=== PATIENT | male | born 2000 | race Hispanic/Latino ===

== ENCOUNTER 2023-01-11 09:58 | Emergency (ER) | payer OTHER ==
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
--- NOTE | 2023-01-11 12:31 | RAD REPORT ---
EXAM DESCRIPTION: RAD - Forearm Left - 01/11/2023 12:18 pm CLINICAL HISTORY: PAIN COMPARISON: No comparisons FINDINGS: No fracture or dislocation seen. Mild soft tissue swelling is seen along the dorsum of the distal forearm.
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
[2023-01-11 13:08] VITALS: TEMP 97.4
[2023-01-11 13:11] VITALS: BP 114/77; O2SAT 97
== END 2023-01-11 12:57 | disposition home or self-care (01) ==
LOC: ER 09:58
PROC: 0HQ1XZZ Repair Face Skin, External Approach (ICD-10-PCS; principal; 2023-01-11)
DX: S01.01XA Laceration without foreign body of scalp, initial encounter (principal); S02.2XXA Fracture of nasal bones, initial encounter for closed fracture; S50.12XA Contusion of left forearm, initial encounter
CPT/HCPCS: 70450; 70486; 76377; 99285

== ENCOUNTER 2023-01-31 13:36 | Emergency (ER) | payer OTHER ==
--- NOTE | 2023-01-31 13:53 | EDPHYS ---
Physician Documentation [facility] Name: Junaid Moody Jr Age: 23 yrs Sex: Male : 2000 Arrival Date: 01/31/2023 Time: 13:36 Bed DX5 Private MD: None, None ED Physician Sagar Coleman HPI: 01/31 15:26 This 23 yrs old Male presents to ER via Ambulatory with complaints of Staple snw Removal. 15:26 The patient has malinda on the scalp. Sutures/malinda progress: The patient has no snw c/o's. The wound is well-healing with no redness, swelling, discharge, or dehiscence reported. Historical: - Allergies: 13:52 No Known Allergies; db - PMHx: 13:52 None; db - PSHx: 13:52 hernia surgery; db - Immunization history:: Adult Immunizations unknown. - Social history:: Smoking status: Patient denies any tobacco usage or history of. ROS: 15:24 Constitutional: Negative for fever, chills, and weight loss, Eyes: Negative for injury, snw pain, redness, and discharge, ENT: Negative for injury, pain, and discharge, Neck: Negative for injury, pain, and swelling, Cardiovascular: Negative for chest pain, palpitations, and edema, Respiratory: Negative for shortness of breath, cough, wheezing, and pleuritic chest pain, Abdomen/GI: Negative for abdominal pain, nausea, vomiting, diarrhea, and constipation, Back: Negative for injury and pain, : Negative for injury, bleeding, discharge, and swelling, MS/Extremity: Negative for injury and deformity, Neuro: Negative for headache, weakness, numbness, tingling, and seizure, Psych: Negative for depression, anxiety, suicide ideation, homicidal ideation, and hallucinations, 15:24 Skin: Positive for laceration(s), here for staple removal, Exam: 15:23 Constitutional: This is a well developed, well nourished patient who is awake, alert, snw and in no acute distress. Eyes: Pupils equal round and reactive to light, extra-ocular motions intact. Lids and lashes normal. Conjunctiva and sclera are non-icteric and not injected. Cornea within normal limits. Periorbital areas with no swelling, redness, or edema. ENT: Nares patent. No nasal discharge, no septal abnormalities noted. Tympanic membranes are normal and external auditory canals are clear. Oropharynx with no redness, swelling, or masses, exudates, or evidence of obstruction, uvula midline. Mucous membranes moist. Neck: Trachea midline, no thyromegaly or masses palpated, and no cervical lymphadenopathy. Supple, full range of motion without nuchal rigidity, or vertebral point tenderness. No Meningismus. Chest/axilla: Normal chest wall appearance and motion. Nontender with no deformity. No lesions are appreciated. Cardiovascular: Regular rate and rhythm with a normal S1 and S2. No gallops, murmurs, or rubs. Normal PMI, no JVD. No pulse deficits. Respiratory: Lungs have equal breath sounds bilaterally, clear to auscultation and percussion. No rales, rhonchi or wheezes noted. No increased work of breathing, no retractions or nasal flaring. Abdomen/GI: Soft, non-tender, with normal bowel sounds. No distension or tympany. No guarding or rebound. No evidence of tenderness throughout. Back: No spinal tenderness. No costovertebral tenderness. Full range of motion. Skin: Warm, dry with normal turgor. Normal color with no rashes, no lesions, and no evidence of cellulitis. MS/ Extremity: Pulses equal, no cyanosis. Neurovascular intact. Full, normal range of motion. Neuro: Awake and alert, GCS 15, oriented to person, place, time, and situation. Cranial nerves II-XII grossly intact. Motor strength 5/5 in all extremities. Sensory grossly intact. Cerebellar exam normal. Normal gait. Psych: Awake, alert, with orientation to person, place and time. Behavior, mood, and affect are within normal limits. 15:23 Head/face: Noted is one staple to left parietal area, removed from well healed laceration. Vital Signs: 13:49 BP 116 / 75; Pulse 80; Resp 16; Temp 98; Pulse Ox 100% ; db MDM: 13:53 Patient medically screened. snw 15:25 Data reviewed: vital signs, nurses notes. Counseling: I had a detailed discussion with snw the patient and/or guardian regarding the historical points, exam findings, and any diagnostic results supporting the discharge/admit diagnosis. Response to treatment: the patient's symptoms have markedly improved after treatment, the patient's symptoms have resolved after treatment. ED course: one staple removed from scalp. Administered Medications: No medications were administered Disposition Summary: 01/31/23 13:53 Discharge Ordered Notes: Location: Home snw Condition: Stable snw Diagnosis - Encounter for removal of sutures snw Followup: snw - With: Emergency Department - When: As needed - Reason: Worsening of condition Followup: snw - With: Private Physician - When: As needed - Reason: Recheck today's complaints, Re-evaluation by your physician Discharge Instructions: - Discharge Summary Sheet snw - Suture Removal, Care After snw Forms: - Medication Reconciliation Form snw - Thank You Letter snw - Antibiotic Education snw - Prescription Opioid Use snw - Patient Portal Instructions snw - Leadership Thank You Letter snw Signatures: Louann San FNP-C [employer]TER-Csnw Mary Farmer, RN RN db
--- NOTE | 2023-01-31 13:53 | ER ---
Nurse's Notes [facility] Name: Junaid Moody Jr Age: 23 yrs Sex: Male : 2000 Arrival Date: 01/31/2023 Time: 13:36 Bed DX5 Private MD: None, None Diagnosis: Encounter for removal of sutures Presentation: 01/31 13:49 Chief complaint: Patient states: STAPLE REMOVAL FROM HEAD. SKIN INTACT AND CLEAN. NO db REDNESS OR DRAINAGE NOTED. Coronavirus screen: Client denies travel out of the [place] in the last 14 days. At this time, the client does not indicate any symptoms associated with coronavirus-19. Ebola Screen: Patient negative for fever greater than or equal to 101.5 degrees Fahrenheit, and additional compatible Ebola Virus Disease symptoms Patient denies exposure to infectious person. Patient denies travel to an Ebola-affected area in the 21 days before illness onset. No symptoms or risks identified at this time. Initial Sepsis Screen: Does the patient meet any 2 criteria? No. Patient's initial sepsis screen is negative. Does the patient have a suspected source of infection? No. Patient's initial sepsis screen is negative. Risk Assessment: Do you want to hurt yourself or someone else? Patient reports no desire to harm self or others. Onset of symptoms was January 31, 2023. 13:49 Method Of Arrival: Ambulatory db 13:49 Acuity: HORTENCIA 5 db Triage Assessment: 13:52 General: Appears in no apparent distress. comfortable, Behavior is calm, cooperative. db Pain: Denies pain. Neuro: Level of Consciousness is awake, alert, obeys commands, Oriented to person, place, time, situation. Respiratory: Airway is patent Respiratory effort is even, unlabored, Respiratory pattern is regular, symmetrical. Derm: Skin is intact, 1 STAPLE. Historical: - Allergies: 13:52 No Known Allergies; db - PMHx: 13:52 None; db - PSHx: 13:52 hernia surgery; db - Immunization history:: Adult Immunizations unknown. - Social history:: Smoking status: Patient denies any tobacco usage or history of. Screenin:53 [facility] ED Fall Risk Assessment (Adult) History of falling in the last 3 months, db including since admission No falls in past 3 months (0 pts) Score/Fall Risk Level 0 - 2 = Low Risk Oriented to surroundings, Maintained a safe environment. Abuse screen: Denies threats or abuse. Denies injuries from another. Nutritional screening: No deficits noted. Tuberculosis screening: No symptoms or risk factors identified. Assessment: 13:53 Reassessment: Patient appears in no apparent distress at this time. Patient and/or db family updated on plan of care and expected duration. Pain level reassessed. Patient is alert, oriented x 3, equal unlabored respirations, skin warm/dry/pink. General: Appears in no apparent distress. comfortable, Behavior is calm, cooperative. Vital Signs: 13:49 BP 116 / 75; Pulse 80; Resp 16; Temp 98; Pulse Ox 100% ; db ED Course: 13:39 Patient arrived in ED. as 13:40 None, None is Private Physician. as 13:47 Louann San [facility]C [facility] snw 13:47 Sagar Coleman MD is Attending Physician. snw 13:49 Arm band placed on. ll1 13:51 Mary Farmer, RN is Primary Nurse. db 13:52 Triage completed. db 13:53 Patient has correct armband on for positive identification. Call light in reach. Side db rails up X 1. Provided Education on: HOME INSTRUCTIONS. 13:53 Patient did not have IV access during this emergency room visit. Removal of Removed db malinda from scalp Patient tolerated well. 13:55 No provider procedures requiring assistance completed. db Administered Medications: No medications were administered Medication: 13:53 VIS not applicable for this client. db Outcome: 13:53 Discharge ordered by . snw 13:53 Discharged to home ambulatory, db 13:53 Condition: stable 13:53 Discharge instructions given to patient, Instructed on discharge instructions, follow up and referral plans. 13:57 Patient left the ED. db Signatures: Louann San FNP-C LOSS PREVENTION AND SAFETY MANAGER-Kimmy Márquez Lynsay, RN RN ll1 Mary Farmer, JUANY RN db
[2023-01-31 14:01] VITALS: BP 116/75; TEMP 98; O2SAT 100
== END 2023-01-31 13:57 | disposition home or self-care (01) ==
LOC: ER 13:36
DX: Z48.02 Encounter for removal of sutures (principal)
CPT/HCPCS: 99283